=== PATIENT | female | born 2000 | race African-American/Black ===

== ENCOUNTER → 2018-03-23 | Outpatient (CLI) | payer SELFPAY | LOC: M ADAMS 11:20 | DX: R06.00 Dyspnea, unspecified (principal) | CPT/HCPCS: 71046 ==

== ENCOUNTER → 2018-03-23 | Outpatient (REF) | payer SELFPAY ==
[2018-03-23 13:54] LABS: BASO % 0.6 % (0.0-1.0); EOS # 0.1 10^3/uL (0.0-0.50); EOS % 2.1 % (0.0-3.0); HEMATOCRIT 40.5 % (36.0-47.0); HEMOGLOBIN 13.2 g/dl (12.0-15.5); IMMATURE GRANULOCYTE % 0.2 % (0-3.0); LYMPH # 2.2 10^3/uL (1.5-6.5); LYMPH % 40.9 % (24.0-44.0); MEAN CORPUSCULAR HEMOGLOBIN 29.6 pg (27.0-33.0); MEAN CORPUSCULAR HGB CONC 32.6 g/dl (32.0-36.5); MEAN CORPUSCULAR VOLUME 90.8 fl (80.0-96.0); MONO # 0.4 10^3/uL (0.0-0.8); NEUTROPHILS # 2.6 10^3/uL (1.8-7.7); NEUTROPHILS % 49.2 % (36.0-66.0); PLATELET COUNT, AUTOMATED 301 10^3/uL (150-450); RED BLOOD COUNT 4.46 10^6/uL (4.00-5.40); RED CELL DISTRIBUTION WIDTH 12.7 % (11.5-14.5); WHITE BLOOD COUNT 5.3 10^3/uL (4.0-10.0)
[2018-03-23 14:22] LABS: ALBUMIN 3.3 GM/DL (3.2-5.2); ALBUMIN/GLOBULIN RATIO 0.87 (1.00-1.93); ALKALINE PHOSPHATASE 140 U/L (45-117); ALT/SGPT 28 U/L (12-78); ANION GAP 5 MEQ/L (8-16); AST/SGOT 20 U/L (7-37); BILIRUBIN,TOTAL 0.3 MG/DL (0.2-1.0); BLOOD UREA NITROGEN 7 MG/DL (7-18); CALCIUM LEVEL 8.9 MG/DL (8.5-10.1); CARBON DIOXIDE LEVEL 29 MEQ/L (21-32); CHLORIDE LEVEL 105 MEQ/L (98-107); CREATININE FOR GFR 0.67 MG/DL (0.55-1.30); GLUCOSE, FASTING 74 MG/DL (70-100); POTASSIUM SERUM 4.6 MEQ/L (3.5-5.1); SODIUM LEVEL 139 MEQ/L (136-145); TOTAL PROTEIN 7.1 GM/DL (6.4-8.2)
== END ==
LOC: M SFHCADAM 11:15
DX: R06.00 Dyspnea, unspecified (principal); R00.2 Palpitations

== ENCOUNTER → 2018-03-23 | Outpatient (REF) | payer SELFPAY ==
[2018-03-23 15:34] LABS: CHLAMYDIA DNA AMPLIFICATION NEGATIVE (NEGATIVE); GC DNA AMPLIFICATION NEGATIVE (NEGATIVE)
== END ==
LOC: M SFHCADAM 13:14
DX: N89.8 Other specified noninflammatory disorders of vagina (principal)

== ENCOUNTER → 2018-03-29 | Outpatient (CLI) | payer SELFPAY | LOC: M CARPUL 11:25 | DX: R06.00 Dyspnea, unspecified (principal) | CPT/HCPCS: 93306 ==

== ENCOUNTER → 2018-06-07 | Outpatient (REF) | payer OTHER ==
[2018-06-07 14:44] LABS: HEMATOCRIT 39.1 % (36.0-47.0); HEMOGLOBIN 12.9 g/dl (12.0-15.5); MEAN CORPUSCULAR HEMOGLOBIN 28.8 pg (27.0-33.0); MEAN CORPUSCULAR VOLUME 87.3 fl (80.0-96.0); PLATELET COUNT, AUTOMATED 257 10^3/uL (150-450); RED BLOOD COUNT 4.48 10^6/uL (4.00-5.40); WHITE BLOOD COUNT 7.1 10^3/uL (4.0-10.0)
[2018-06-07 15:11] LABS: HCG, SERUM QUANTITATIVE 68051 MIU/ML
[2018-06-08 15:29] LABS: RUBELLA IgG QUALITATIVE IMMUNE (IMMUNE)
[2018-06-08 15:58] LABS: HEPATITIS C VIRUS ABY INDEX 0.1 INDEX (<0.8); HIV 1&2 SCREEN CENTAUR NEGATIVE (NEGATIVE)
== END ==
LOC: M LAB REF 14:35
PROVIDERS: ATTEND Obstetrics & Gynecology
DX: Z32.01 Encounter for pregnancy test, result positive (principal); O36.80X0 Pregnancy with inconclusive fetal viability, not applicable or unspecified

== ENCOUNTER 2018-09-11 17:35 | Outpatient (CLI) | payer OTHER, SELFPAY ==
[~2018-09-11] VITALS: Ht 167.6 cm; Wt 105.2 kg
[2018-09-11 18:00] VITALS: BP 116/73
[2018-09-11] MEDS ORDERED: MAPA500T2 PO (18:23)
[2018-09-11] MEDS ORDERED: PRENTAB9 PO (18:23)
[2018-09-11 18:37] VITALS: BP 118/72
[2018-09-11 19:22] VITALS: BP 126/73
[2018-09-11 20:24] VITALS: BP 120/69
== END 2018-09-11 20:45 | disposition home or self-care (01) ==
LOC: M LDO 17:35
PROVIDERS: ATTEND Obstetrics & Gynecology
DX: O99.89 Other specified diseases and conditions complicating pregnancy, childbirth and the puerperium (principal); Z3A.26 26 weeks gestation of pregnancy; R11.2 Nausea with vomiting, unspecified
CPT/HCPCS: G0378; G0463

== ENCOUNTER 2018-09-23 09:56 | Outpatient (CLI) | payer OTHER ==
[~2018-09-23] VITALS: Ht 167.6 cm; Wt 107.9 kg
[2018-09-23] VITALS (7 sets, daily range): BP systolic 111–131; BP diastolic 65–82
[~2018-09-23 09:56] MED LIST: MAPA500T2 PO; PRENTAB9 PO
[2018-09-23] MEDS ORDERED: LR 1,000 ML IV SCH (12:20)
--- NOTE | 2018-09-23 12:28 | IPNPDOC ---
Text Note Date of Service The patient was seen on 09/23/18. NOTE Outpatient 17yo ANJALI 12/14/18. Pt of [facility]. Presents @ 28w3d with complaints of lower abdominal and back cramping, intermittent. Denies LOF. Reports spotting. Hx significant for previous PTLB @ 34 wks, 9 months ago in [place]. No records available. FH Cat I NAD VSS No UC on monitor Abdomen soft, gravid, nontender. Reports discomfort into groin with activity, OOB and turning over. Clots noted in toilet. SSE + show, membranes visible SVE 50/-2, nonvertex presentation Consult Dr Hughes Mag sulfate prophylaxis, GBS prophylaxis, betamethasone injections and transfer to [place]. A-FIB/CHADSVASC A-FIB History Current/History of A-Fib/PAF?: No Current Oral Anticoagulant The: No VS,Fishbone, I+O VS, Fishbone, I+O Vital Signs Date Time Temp Pulse Resp B/P (MAP) Pulse Ox O2 Delivery O2 Flow Rate FiO2 09/23/18 10:17 97.7 118 18 111/68 (82) Dee Roy CNM September 23, 2018 12:28
[2018-09-23] MEDS ORDERED: MAG Sulf (L&D) 4 GM/100 ML 4 GM in APPROPRIATE DILUENT 1 EA IV ONE (12:30)
[2018-09-23] MEDS ORDERED: PENICILLIN G POTASSIUM IV 5 MU in D5W MINI-BAG PLUS 100 ML IV ONE (12:45)
[2018-09-23] MEDS ORDERED: MAG Sulf (OBGYN) 20GM/500ML 20,000 MG in APPROPRIATE DILUENT 1 EA IV SCH (13:00)
[2018-09-23] MEDS ORDERED: BETAMETHASONE SOLUSPAN 6MG/ML INJ 5ML (J0702) IM SCH (13:00)
--- NOTE | 2018-09-23 13:00 | IPNPDOC ---
Text Note Date of Service The patient was seen on 09/23/18. NOTE TC from Ceferino Stanley. Reviewed pt status Agrees to accept pt as long as she remains stable. A-FIB/CHADSVASC A-FIB History Current/History of A-Fib/PAF?: No Current Oral Anticoagulant The: No VS,Fishbone, I+O VS, Fishbone, I+O Vital Signs Date Time Temp Pulse Resp B/P (MAP) Pulse Ox O2 Delivery O2 Flow Rate FiO2 09/23/18 10:17 97.7 118 18 111/68 (82) Dee Roy CNM September 23, 2018 13:00
[2018-09-23 13:17] LABS: HEMATOCRIT 38.8 % (36.0-47.0); HEMOGLOBIN 12.6 g/dl (12.0-15.5); MEAN CORPUSCULAR HEMOGLOBIN 29.2 pg (27.0-33.0); MEAN CORPUSCULAR HGB CONC 32.5 g/dl (32.0-36.5); MEAN CORPUSCULAR VOLUME 89.8 fl (80.0-96.0); PLATELET COUNT, AUTOMATED 236 10^3/uL (150-450); RED BLOOD COUNT 4.32 10^6/uL (4.00-5.40); WHITE BLOOD COUNT 11.2 10^3/uL (4.0-10.0)
--- NOTE | 2018-09-23 13:39 | IPNPDOC ---
Text Note Date of Service The patient was seen on 09/23/18. NOTE Pt continues to deny feeling UC No UC on monitor Cat I tracing Footling breech by shelly NAVA 5-3, membranes intact Consult Dr Hughes. Continue towards transfer. Ambulance notified A-FIB/CHADSVASC A-FIB History Current/History of A-Fib/PAF?: No Current Oral Anticoagulant The: No VS,Fishbone, I+O VS, Fishbone, I+O Laboratory Tests 09/23/18 12:49 Red Blood Count 4.32, Mean Corpuscular Volume 89.8, Mean Corpuscular Hemoglobin 29.2, Mean Corpuscular Hemoglobin Concent 32.5, Red Cell Distribution Width 13.6 Vital Signs Date Time Temp Pulse Resp B/P (MAP) Pulse Ox O2 Delivery O2 Flow Rate FiO2 09/23/18 10:17 97.7 118 18 111/68 (82) Dee Roy CNM September 23, 2018 13:39
[2018-09-23 13:53] LABS: AMPHETAMINES URINE REFLEX NEGATIVE (NEGATIVE); BARBITURATES URINE REFLEX NEGATIVE (NEGATIVE); BENZODIAZEPINES URINE REFLEX NEGATIVE (NEGATIVE); CANNABINOIDS URINE REFLEX NEGATIVE (NEGATIVE); COCAINE METABOLITE URINE REFLE NEGATIVE (NEGATIVE); METHADONE URINE REFLEX NEGATIVE (NEGATIVE); OPIATES URINE REFLEX NEGATIVE (NEGATIVE); PHENCYCLIDINE URINE REFLEX NEGATIVE (NEGATIVE)
[2018-09-23 14:51] LABS: INR 0.92; PROTHROMBIN TIME 12.5 SECONDS (12.1-14.4)
[2018-09-23 14:52] LABS: PARTIAL THROMBOPLASTIN TIME 30.6 SECONDS (25.4-37.6)
--- NOTE | 2018-09-23 15:25 | REP ---
Obstetric sonography: History: Bleeding. Limited OB sonography: Findings: Scanning through the gravid uterus demonstrates a living single intrauterine gestation in a footling breech lie. motion is observed and heart rate is recorded at 147 beats per minute. A posterior fundal grade 1 placenta is seen without evidence of previa or abruption. Amniotic fluid is subjectively normal. MARJORIE is normal at 10.4 cm (9.3-22.9 cm). S/D ratio in the umbilical cord artery by Doppler is 2.10 (2.57-3.85). Transabdominal and translabial scanning are performed. No cervical tissue could be identified. The feet of the fetus and free-floating umbilical cord are seen at the vaginal cuff. Electronically Signed by Yovani Adhikari MD 09/23/2018 07:58 P
[2018-09-23] MEDS ORDERED: PENICILLIN G POTASSIUM IV 2.5 MU in APPROPRIATE DILUENT 1 EA IV SCH (17:00)
[2018-09-24] MEDS ORDERED: IBUP80TA PO (11:56)
[2018-09-24] MEDS ORDERED: COLA100C5 PO (11:58)
[2018-09-24] MEDS ORDERED: PERCOCET PO (11:59)
== END 2018-09-23 14:05 | disposition other institution (70) ==
LOC: M LDO 09:56
PROVIDERS: ATTEND Advanced Practice Midwife
DX: O26.893 Other specified pregnancy related conditions, third trimester (principal); R10.30 Lower abdominal pain, unspecified; O26.853 Spotting complicating pregnancy, third trimester; O32.1XX0 Maternal care for breech presentation, not applicable or unspecified; Z3A.28 28 weeks gestation of pregnancy
CPT/HCPCS: 59025; 96365; 96367; 96372; G0463

== ENCOUNTER 2018-09-23 15:06 | Inpatient (IN) | payer OTHER ==
[~2018-09-23] VITALS: Ht 167.6 cm; Wt 107.9 kg
[2018-09-23] VITALS (19 sets, daily range): BP systolic 112–148; BP diastolic 64–87
[2018-09-23] MEDS ORDERED: ACETAMINOPHEN TAB 650MG DOSE (2X325MG) PO PRN (15:15)
--- NOTE | 2018-09-23 15:39 | HPEPDOC ---
Obstetrical History & Physical General Date of Admission September 23, 2018 at 15:15 History of Present Illness Chief Complaint: Contractions, pre-term Information Provided By: Patient Age: 17 : 2 Term: 0 Pre-term: 1 Abortions: 0 Livin Care Care: Limited Care Dating Final EDC: Dec 14, 2018 Final EDC by: 1st trimester (US) EGA at Admission: 28 (+3) Antepartum Course Diagnos(e)s previous delivery threatened delivery Height (inches): 66 Pre- weight (lbs.): 217 Admission Weight (lbs.): 234 Past Medical History Past Obstetrical History : Past Obstetrical History: Primgravida (2018) Type of Delivery: Spontaneous Vaginal Del. Sex of : Male Complications: Yes (34wk delivery, preeclampsia) [employer] History: No pertinent history Past Medical History Medical History hx preeclampsia Surgical History: Hernia repair Family History Significant Family History: No pertinent family hx Social History Marital Status: Family situation: Spouse/partner home Psychosocial History: No pertinent psych hx * Smoker: former Smoker Alcohol: Denies Drugs: denies Allergies Coded Allergies: No Known Allergies (Unverified , 09/11/18) Medications Scheduled No.137/Iron/Folic Acd ( Vitamin Tablet) 1 Each Tablet, 1 TAB PO DAILY Physical Examination Physical Examination GENERAL: Alert and oriented times three. BREAST: . ABDOMEN: Gravid and non-tender to touch. FETUS: Is vertex (VTX) by sterile vaginal examination (SVE), fetus is footling breech by bedside sonogram. HEART RATE: Regular rate and rhythm. LUNGS: Clear to auscultation (CTA). EXTREMITIES: No edema. No clonus. Deep tendon reflexes (DTRs) + 2 SSE moderate bloody show. Membranes visible. SVE initially 4cm, -3. Later 6cm/80%/-3 No UC on monitor. Denies any pain or contractions Laboratory Data 24H LABS Laboratory Tests 2 09/23/18 15:17: Serology Scanned Report Hepatitis B Testing Pertinent Laboratoy Data Blood Type: O+ RBC Antibody Screen: Negative HIV: Negative Hepatitis B: Negative Hepatitis C: Negative Rapid Plasma Reagin: Nonreactive Rubella: Immune Chlamydia/Gonorrhea: Negative Group B Streptococcus: Unknown Quad Screen Test: Negative Glucose Tolerance Test: 95 Anatomy Ultrasound Ultrasound Date: Jul 20, 2018 Placenta Location: Posterior Normal Anatomy: Yes Placenta Previa: No Estimated Weight (grams): 256 Other Ultrasounds 06/10/18 dating 13w2d ANJALI 12/14/18 Steroid Therapy Steroid Therapy: Yes (initiated 09/23/18) Vaginal Examination Dilation: 6 cm Effacement: 80% Station: -3 Cervical Consistency: Soft Cervical Position: Middle Presentation: Breech presentation (footling) Assessment Heart Rate (FHR): 145 Variability: Moderate Accelerations: Positive Decelerations: None Tocometer Contractions: No Assessment/Plan Assessment Yudy is a 17-year-old (G)2 para (P)0-1-0-1 at 28+3 weeks by 13-week ultrasound. Admitted to Labor and Delivery (L&D) after attempted transfer for threatened delivery. Transfer declined due to cervical change. However, pt is not experiencing any contractions or pain. Sonogram demonstrates footling breech presentation. Membranes are intact. Plan Admit and orient per consult Dr Hughes Cane Loader and consent. Diet: Clear liquids. Group B Streptococcus (GBS) unknown, prophylaxis provided. Labs and intravenous (IV) per unit protocol.Mag sulfate per protocol for neuroprotection Betamethasone injections Q 24 hrs Bedrest Reassess as indicated by symptoms. Dee Roy CNM September 23, 2018 15:39
[2018-09-23] MEDS: PENICILLIN G POTASSIUM IV 2.5 MU in APPROPRIATE DILUENT 1 EA IV SCH ×2 (17:04→21:25)
[2018-09-23] MEDS ORDERED: LR 1,000 ML IV SCH (17:06)
[2018-09-23] MEDS ORDERED: MAGNESIUM SULFATE 4% INJ 20GM/500ML (40MG/ML) (J3475) As Ordered ONE (23:22)
[2018-09-23 23:26] LABS: HEMOGLOBIN 12.1 g/dl (12.0-15.5); MEAN CORPUSCULAR HEMOGLOBIN 29.7 pg (27.0-33.0); MEAN CORPUSCULAR HGB CONC 32.7 g/dl (32.0-36.5); MEAN CORPUSCULAR VOLUME 90.7 fl (80.0-96.0); PLATELET COUNT, AUTOMATED 241 10^3/uL (150-450); RED BLOOD COUNT 4.08 10^6/uL (4.00-5.40); WHITE BLOOD COUNT 17.1 10^3/uL (4.0-10.0)
[2018-09-23] MEDS: MAG Sulf (OBGYN) 20GM/500ML 20,000 MG in APPROPRIATE DILUENT 1 EA IV SCH (23:26)
[2018-09-24] VITALS (16 sets, daily range): BP systolic 105–150; BP diastolic 51–81
[2018-09-24] MEDS: PENICILLIN G POTASSIUM IV 2.5 MU in APPROPRIATE DILUENT 1 EA IV SCH ×3 (01:11→08:52)
--- NOTE | 2018-09-24 05:25 | NUR ---
Progress Note Called into room by RN to evaluate. Patient intermittently having rectovaginal pressure. She's unsure if she needs to have a bowel movement. She does not have an overwhelming urge to push. She is not feeling frequent, painful uterine contractions. Denies large gush of fluid or vaginal bleeding. No additional bloody show since this afternoon. VSS,normotensive, normal HR, afebrile Currently no bloody show. US,crawford: breech/transverse, pelvis still above pubic symphysis. EFM: Intermittent variable deceleration, baseline 130, mod variability, +accels. [place]: ctx pattern not detected Previously 6cm/80%/-3 with palpable bulging membranes A/P: 28+4 weeks. Advanced cervical dilation. No change in station, no evidence of uterine contractions/active labor. Reassuring status. -Explained to patient risk of repeated/frequent SVE (i.e. incidental ROM) -Symptoms, evaluation findings right now are not suggestive of progression, therefore I'm not currently inclined to recheck her cervix. -Pt verbalized understanding. Dana Hughes, DO
[2018-09-24] MEDS: MAG Sulf (OBGYN) 20GM/500ML 20,000 MG in APPROPRIATE DILUENT 1 EA IV SCH (08:52)
[2018-09-24] MEDS ORDERED: PRENATAL VITAMINS CHEWABLE TABLET PO SCH (09:00)
[2018-09-24] MEDS ORDERED: ceFAZolin 2 GM/D5W 50 ML IV BAG (J0690 PER 500MG) As Ordered ONE (09:57)
[2018-09-24] MEDS ORDERED: BICITRA 30ML SOLN UDC As Ordered ONE (09:57)
[2018-09-24] MEDS ORDERED: AZITHROMYCIN INJ 500MG VIAL (J0456) As Ordered ONE (09:58)
--- NOTE | 2018-09-24 10:01 | NUR ---
Progress Note Patient complaining of significantly more pressure and vaginal pain. Also complains of increased bright red vaginal bleeding. No significant LOF. VSS,normotensive, normal HR afebrile SVE: c/c/-2, bulging membranes US,crawford: breech EFM: Cat I [place]: difficult to trace; uterine irritability A/P: Active labor/second stage. Intact membranes. Breech presentation. -Preparations for OR being made Dana Hughes DO
[2018-09-24] MEDS ORDERED: MORPHINE PRES-FREE INJ 10 MG/10 ML VIAL (J2274) As Ordered ONE (10:02)
[2018-09-24] MEDS ORDERED: OXYTOCIN INJ 10 UNITS/ML VIAL (J2590) As Ordered ONE (10:02)
[2018-09-24] MEDS ORDERED: AZITHROMYCIN INJ 500 MG, VIAL MATE ADAPTER 1 EACH in D5W 250 ML IV ONE (10:15)
[2018-09-24] MEDS ORDERED: BICITRA 30ML SOLN UDC PO ONE (10:15)
[2018-09-24] MEDS ORDERED: ONDANSETRON 4MG/2ML VIAL (J2405) As Ordered ONE (10:19)
[2018-09-24] MEDS ORDERED: fentaNYL 100 MCG/2 ML INJECTION (J3010) As Ordered ONE (10:36)
[2018-09-24] MEDS ORDERED: PHENYLephrine HCL 500 MCG/5 ML (100MCG/ML) SYRINGE (J2370) As Ordered ONE (10:43)
[2018-09-24 10:51] LABS: CORD GAS ABE V -1.2; CORD GAS HCO3 V 22.2 MEQ/L; CORD GAS O2 SAT V 90.9 %; CORD GAS PCO2 V 33.2 mmHg; CORD GAS PH V 7.443 UNITS; CORD GAS PO2 V 44.3 mmHg; CORD GAS SBC V 23.3 MEQ/L; CORD GAS TCO2 V 23.2 MEQ/L
[2018-09-24] MEDS ORDERED: FAMOTIDINE INJ 20MG/2ML VIAL (S0028) As Ordered ONE (10:54)
[2018-09-24] MEDS ORDERED: OXYTOCIN 30 UNITS IN 0.9% NaCl 500ML IV BAG (J2590) As Ordered ONE (11:27)
[2018-09-24] MEDS ORDERED: OXYTOCIN DRIP 30 UNITS in APPROPRIATE DILUENT 1 EA IV SCH (11:28)
[2018-09-24] MEDS ORDERED: LR 1,000 ML IV SCH (11:28)
[2018-09-24] MEDS ORDERED: ONDANSETRON 4MG/2ML VIAL (J2405) IV PRN ×2 (11:30→12:00)
[2018-09-24] MEDS ORDERED: RHOGAM 300 MCG (1500 IU) INJ (J2790) IM SCH (11:30)
[2018-09-24] MEDS ORDERED: MEASLES,MUMPS,RUBELLA VACCINE INJ (MMR-II) (90707) SC SCH (11:30)
[2018-09-24] MEDS ORDERED: PROMETHAZINE 25 MG TAB PO PRN (11:30)
--- NOTE | 2018-09-24 11:48 | NUR ---
Operative Note Date of procedure: 09/24/2018 Procedure: Primary low-transverse section Anesthesia: Spinal with Duramorph Preoperative diagnosis: 28+3 weeks gestation Breech presentation labor Postoperative diagnosis: Same as preoperative Indication: 17-year-old G2, now P2. Presented yesterday with advanced cervical dilation. Betamethasone and magnesium sulfate were administered in anticipation of a delivery. Breech presentation noted on ultrasound. After she progressed to complete dilation this morning, the decision was made to proceed to the operating room for delivery. Primary surgeon: Scotty Hughes D.O., F. A.JuliocesarOBobbiG. Model Dresser: Rochelle Paz MD FACOG (essential role in surgical site exposure and assistance with delivery) Estimated blood loss: 500 ml IV fluids administered: 1600 ml crystalloid Drains: Lamar catheter. Urine output: 100 ml [place] data: Apgars 3, 7 and 8. Birthweight of 1130 g, 2 lbs. 8 oz male, named Garrett. Preoperative/prophylactic antibiotics: Ancef 2 g IV (given within 30 minutes prior to surgical start time). Intraoperative findings: Breech presentation. Incidental right paratubal cyst. Normal ovaries bilaterally. Normal uterus. Specimen(s): Placenta, right paratubal cyst Procedure: The patient was counseled and consented on the risks, benefits, indications and alternatives of the procedure. Informed consent was obtained and placed in the c araujo. She was taken to the operating room with an IV running. She was placed on the operating table. Spinal anesthesia was administered without any difficulty and found to be adequate. She was placed in the dorsal supine position with a leftward tilt. Sequential compression devices were placed on the lower extremities. A Lamar catheter was placed under sterile conditions. She was sterilely prepped and draped. A surgical time out was performed per protocol. Spinal anesthesia was again found to be adequate. Using the 10 blade a Pfannenstiel incision was performed. The 10 blade was used to dissect down to the level of the rectus sheath fascia. The rectus sheath fas carmenza was incised at the midline, and the fascial incision was extended with Hammonds scissors. Chaka clamps were used to grasp the superior and inferior aspect of the fascial incision and the rectus muscle bellies were dissected off sharply and bluntly. The midline was identified and the rectus muscle bellies were manually . The peritoneum was identified and clamped with hemostats and elevated. The peritoneum was then incised with Metzenbaum scissors. Entry into the intraperitoneal cavity was achieved. The peritoneal opening was extended with manual stretch . There was good visualization of both the bladder and the lower uterine segment. The Mobius retractor was placed. The vesicouterine peritoneum was dissected with Metzenbaum scissors and blunt dissection. A low transverse uterine incision was made with a new 10 blade. The hysterotomy was extended with manual stretch. The amniotic sac was protruding and then artificially ruptured. Clear amniotic fluid was noted. Breech maneuvers were performed and the baby delivered through the hysterotomy without any difficulty/dystocia. The cord was doubly clamped and cut and the baby was handed off to awaiting care. See data above. Cord blood was obtained.. Cord gases were obtained. The placenta was manually removed and noted to be fully intact. The uterus was kept in situ. The intrauterine cavity was cleared of all clot and debris with a laparotomy sponge. The hysterotomy was closed with 0 Vicryl in running, locked fashion. A second imbricating closure was performed over the initial layer closure using 0 Vicryl. The hysterotomy was noted to be hemostatic. The posterio r cul-de-sac was irrigated and cleared of all clot and debris. The paracolic gutters were cleared of all clot and debris with damp laparotomy sponges. The hysterotomy is reinspected and noted to be hemostatic. Sponge, needle and instrument counts were correct. The peritoneum was closed with 3-0 Vicryl in run erin fashion. The rectus muscle bellies were reapproximated with 3-0 Vicryl with a series of interrupted sutures. The rectus muscle bellies were noted to be hemostatic. The fascia was closed with 0 Vicryl in running fashion. Sponge, needle and instrument counts were again correct. The subcutaneous layer was irrigated. Small subcutaneous bleeders were cauterized with Bovie. The subcutaneous layer was reapproximated with 3-0 Vicryl in running fashion. The skin was closed with 3-0 Monocryl in subcuticular fashion. A bandage was placed over the closed incision. The final sponge, instrument and needle count was correct. She tolerated the entire procedure very well. She was transferred to the PACU in good and stable condition. Dr. Scotty Hughes D.O., F.A.C.O.G
[2018-09-24] MEDS ORDERED: IBUP80TA PO (11:56)
[2018-09-24] MEDS ORDERED: COLA100C5 PO (11:58)
[2018-09-24] MEDS ORDERED: PERCOCET PO (11:59)
[2018-09-24] MEDS ORDERED: fentaNYL 100 MCG/2 ML INJECTION (J3010) IV PRN (12:00)
[2018-09-24] MEDS ORDERED: BETAMETHASONE SOLUSPAN 6MG/ML INJ 5ML (J0702) IM SCH (12:45)
[2018-09-24] MEDS: KETOROLAC 30 MG/ML VIAL (J1885) IV SCH ×2 (13:37→20:06)
[2018-09-24 18:09] LABS: HEMATOCRIT 32.2 % (36.0-47.0); HEMOGLOBIN 10.4 g/dl (12.0-15.5); MEAN CORPUSCULAR HGB CONC 32.3 g/dl (32.0-36.5); MEAN CORPUSCULAR VOLUME 89.7 fl (80.0-96.0); PLATELET COUNT, AUTOMATED 226 10^3/uL (150-450); RED BLOOD COUNT 3.59 10^6/uL (4.00-5.40); WHITE BLOOD COUNT 15.6 10^3/uL (4.0-10.0)
[2018-09-24 18:34] LABS: CREATININE FOR GFR 0.72 MG/DL (0.55-1.30)
[2018-09-24] MEDS ORDERED: ENOXAPARIN 40 MG/0.4 ML SYRINGE (J1650) SC SCH (21:00)
[2018-09-24] MEDS: ENOXAPARIN 40 MG/0.4 ML SYRINGE (J1650) SC SCH (21:01)
[2018-09-24] MEDS: DOCUSATE SODIUM 100 MG CAP PO SCH (21:02)
[2018-09-25] VITALS (7 sets, daily range): BP systolic 94–130; BP diastolic 50–68
[2018-09-25] MEDS: KETOROLAC 30 MG/ML VIAL (J1885) IV SCH ×2 (03:24→08:45)
[2018-09-25 06:40] LABS: MEAN CORPUSCULAR HGB CONC 32.3 g/dl (32.0-36.5); MEAN CORPUSCULAR VOLUME 93.1 fl (80.0-96.0); PLATELET COUNT, AUTOMATED 181 10^3/uL (150-450); RED BLOOD COUNT 3.33 10^6/uL (4.00-5.40)
[2018-09-25] MEDS: PRENATAL VITAMINS CHEWABLE TABLET PO SCH (08:11)
[2018-09-25] MEDS: DOCUSATE SODIUM 100 MG CAP PO SCH ×2 (08:11→22:00)
--- NOTE | 2018-09-25 11:31 | NUR ---
POD#1 s/p PLTCS Pain well controlled, voiding spontaneously, tolerating a regular diet, ambulating without difficulty, lochia decreasing and minimal. Normotensive, normal HR, afebrile H: RRR no m/g/r L: CTA b/l no w/c/r/r Abd: soft,nt,nd Ext: no c/c/e Incision c/d/i with bandage on A/P: POD#1. Recovering appropriately. Hemodynamically stable, afebrile, good pain control. -Routine postoperative care/advancement -Anticipate d/c tomorrow. Dana Hughes DO
[2018-09-25] MEDS: PERCOCET 5MG/325MG TAB PO PRN ×3 (13:31→21:58)
[2018-09-25] MEDS: IBUPROFEN 800 MG TAB PO SCH (16:11)
[2018-09-25] MEDS: ENOXAPARIN 40 MG/0.4 ML SYRINGE (J1650) SC SCH (21:59)
[2018-09-26] MEDS: IBUPROFEN 800 MG TAB PO SCH ×2 (00:05→09:24)
[2018-09-26 02:06] VITALS: BP 107/68
[2018-09-26] MEDS: PERCOCET 5MG/325MG TAB PO PRN ×2 (02:17→06:36)
[2018-09-26 06:06] VITALS: BP 112/59
--- NOTE | 2018-09-26 08:53 | NUR ---
Discharge Summary Admission date: 09/23/18 Discharge date: 09/26/18 Admission diagnosis: Advanced cervical dilation at 28 weeks gestation, breech presentation Discharge diagnosis: labor, breech presentation, s/p PLTCS Discharge summary: 17yo [id number]. Admitted on 09/23/18 with advanced cervical dilation at 28+ weeks gestation. Unable to transfer to [place]. Pt was given betamethasone and magnesium sulfate. In the AM of 09/24/18, she was found to be completely dilated with footling breech presentation (membranes were intact). She was take n to the operating room for an urgent PLTCS with spinal anesthesia. The cesarea n delivery via low transverse incision was uncomplicated. Her postoperative course was uncomplicated as well. Upon delivery, arrangements were made for the baby's transfer to [facility]. The patient met all discharge criteria on POD#2, 09/26/18. Vitals were normal/stable. She was instructed to follow up in the office in 1-2 weeks. We reviewed fever, infectious, pain, and bleeding precautions. Discharge medications include: Percocet, Motrin, Colace. DO HINA CrespoOG
[2018-09-26] MEDS: DOCUSATE SODIUM 100 MG CAP PO SCH (09:24)
[2018-09-26] MEDS: PRENATAL VITAMINS CHEWABLE TABLET PO SCH (09:24)
== END 2018-09-26 10:26 | disposition home or self-care (01) | DRG 771 ==
LOC: M LDO 15:06 → M LDI 15:15 → M OBS 09-24 13:01
PROVIDERS: ADMIT Advanced Practice Midwife; ATTEND Advanced Practice Midwife
PROC: 10D00Z1 Extraction of Products of Conception, Low, Open Approach (ICD-10-PCS; principal; 2018-09-24 04:21)
DX: O32.1XX0 Maternal care for breech presentation, not applicable or unspecified (principal); O60.14X0 Preterm labor third trimester with preterm delivery third trimester, not applicable or unspecified; Z37.0 Single live birth; Z3A.28 28 weeks gestation of pregnancy

== ENCOUNTER → 2018-11-14 | Outpatient (CLI) | payer OTHER ==
[~2018-11-14] MED LIST changes: +COLA100C5 PO; +IBUP80TA PO; +PERCOCET PO
--- NOTE | 2018-11-14 14:55 | REP ---
LEFT BREAST ULTRASOUND: Left breast ultrasound performed in the region of a palpable lump in the left breast at about 3 o'clock. The patient is . In the region of the palpable lump at 3 o'clock there is an oval complex nodule containing solid and cystic components, measuring approximately 2.3 x 1.5 x 1.9 cm. It is wider than tall. There is internal venous flow with duplex Doppler evaluation. In the left axilla there is a normal size lymph node with a fatty hilum measuring 1.2 x 0.9 x 0.8 cm. IMPRESSION: ACR 3 probably benign. At the site of the palpable lump at 3 o'clock left breast is an oval complex solid and cystic nodule with a maximum diameter of 2.3 cm. In this lactating patient this most likely represents a lactating adenoma, or possibly fibroadenoma or lobular hyperplasia. Recommend followup ultrasound in 3 to 6 months. Electronically Signed by Morris Bedoya MD 11/14/2018 04:26 P
== END ==
LOC: M RAD 13:19
PROVIDERS: ATTEND Obstetrics & Gynecology
DX: N63.21 Unspecified lump in the left breast, upper outer quadrant (principal)

== ENCOUNTER → 2018-11-23 | Outpatient (REF) | payer OTHER ==
[2018-11-23 19:47] LABS: BASO % 0.5 % (0.0-1.0); EOS # 0.1 10^3/uL (0.0-0.50); EOS % 1.8 % (0.0-3.0); HEMATOCRIT 39.8 % (36.0-47.0); HEMOGLOBIN 12.5 g/dl (12.0-15.5); LYMPH # 2.4 10^3/uL (1.5-6.5); LYMPH % 30.8 % (24.0-44.0); MEAN CORPUSCULAR HEMOGLOBIN 28.2 pg (27.0-33.0); MEAN CORPUSCULAR HGB CONC 31.4 g/dl (32.0-36.5); MEAN CORPUSCULAR VOLUME 89.6 fl (80.0-96.0); MONO # 0.6 10^3/uL (0.0-0.8); MONO % 8.2 % (0.0-5.0); NEUTROPHILS # 4.5 10^3/uL (1.8-7.7); NEUTROPHILS % 58.3 % (36.0-66.0); PLATELET COUNT, AUTOMATED 331 10^3/uL (150-450); RED BLOOD COUNT 4.44 10^6/uL (4.00-5.40); WHITE BLOOD COUNT 7.8 10^3/uL (4.0-10.0)
== END ==
LOC: M SFHCADAM 14:14
PROVIDERS: ATTEND Family Medicine
DX: Z86.2 Personal history of diseases of the blood and blood-forming organs and certain disorders involving the immune mechanism (principal)
CPT/HCPCS: 85025; G0463

== ENCOUNTER → 2019-01-24 | Outpatient (REF) | payer OTHER ==
[2019-01-24 22:39] LABS: CHLAMYDIA DNA AMPLIFICATION NEGATIVE (NEGATIVE); GC DNA AMPLIFICATION NEGATIVE (NEGATIVE)
== END ==
LOC: M LAB REF 17:29
PROVIDERS: ATTEND Obstetrics & Gynecology
DX: N91.5 Oligomenorrhea, unspecified (principal); Z11.3 Encounter for screening for infections with a predominantly sexual mode of transmission

== ENCOUNTER → 2019-01-30 | Outpatient (CLI) | payer OTHER ==
--- NOTE | 2019-01-30 15:24 | REP ---
ULTRASOUND LEFT BREAST: Real-time sonographic evaluation of the left breast performed in the 3 -o'clock region. Comparison is made with a prior study of 11/14/2018. At that location, there is an oval predominantly solid mass with scattered tiny cystic areas. There is internal blood flow with Doppler evaluation. This measures 2.5 x 1.1 x 1.7 cm. There is no significant change compared to the prior exam. Again, in this lactating patient, most likely differential diagnostic possibilities include lactating adenoma, possible fibroadenoma or lobular hyperplasia. Continue followup is recommended. Recommend followup ultrasound in 3-6 months. Impression: BIRADS category three, probably benign. Stable predominantly solid nodule left breast. Recommend follow-up ultrasound in 3-6 months. Electronically Signed by Morris Bedoya MD 01/30/2019 04:25 P
--- NOTE | 2019-01-31 04:27 | REP ---
Clinical: Pelvic pain . Technique: Transabdominal pelvic ultrasound followed by transvaginal examination for better evaluation of the endometrium and adnexa with color Doppler evaluation of the ovaries. Findings: Bladder is unremarkable and measures 8.4 x 5.7 x 4.4 cm . Normal anteverted uterus measures 7.9 x 5.2 x 6.8 cm . The endometrial complex measures 11.0 mm thickness. No discrete uterine or endometrial abnormalities are appreciated. Bilateral ovaries are normal in vascularity without evidence for torsion. Right ovary measures 4.0 x 3.0 x 4.0 cm ; R I = 0.53. 2.2 x 2.2 x 2.8 cm complex right ovarian cyst noted. Left ovary measures 2.1 x 1.6 x 2.1 cm ; R I = 0.50 . Trace free fluid in the posterior cul-de-sac is nonspecific and likely physiologic. . Impression: 1. 2.8 cm complex cystic structure in the right ovary. Differential diagnosis includes but is not limited to complex physiologic cyst including hemorrhagic cyst as well as possible dermoid. Consider reevaluation in 4-6 weeks to evaluate for resolution. Electronically Signed by Master Meeks MD 01/31/2019 04:18 A
== END ==
LOC: M RAD 14:09
PROVIDERS: ATTEND Obstetrics & Gynecology
DX: D48.62 Neoplasm of uncertain behavior of left breast (principal); N83.201 Unspecified ovarian cyst, right side

== ENCOUNTER → 2019-03-31 | Outpatient (CLI) | payer OTHER ==
--- NOTE | 2019-03-31 15:14 | REP ---
REASON: Ovarian cyst. COMPARISON EXAMINATION: 01/30/2019 which showed a 2.8 cm sized complex cystic structure seen in the right ovary for which this examination was performed to followup. Transvesical and transvaginal imaging was obtained. The uterus is unchanged in size, shape, and echo pattern. The endometrial echo complex is within normal limits measuring 1.6 cm in thickness. Right ovary measures 4.5 x 3.2 x 2.7 cm. Within the right ovary there is a 1.7 x 1.7 x 1.9 cm sized complex septated anechoic structure. The right ovarian RI is 0.61. Left ovary measures 2.8 x 1.5 x 2.2 cm and is within normal limits with an RI 0.47. There is a small amount of fluid in the cul-de-sac. Urinary bladder measures 6 x 3 x 8 cm. IMPRESSION: The cystic structure seen previously in the right ovary has decreased in size. Electronically Signed by Alex Benjamin DO 03/31/2019 03:29 P
--- NOTE | 2019-03-31 17:29 | REP ---
Focused right breast sonography: History: Unspecified lump in the right breast. Right breast lump at 7 o'clock according to patient palpable since having a baby 6 months ago. Sonographic findings: The right breast is scanned sonographically at the 7 o'clock position in the area of palpable lump. Heterogeneous fibroglandular background echotexture is seen. No suspicious sonographic features. Impression: BIRADS category one negative findings. Clinical follow-up is advised. Electronically Signed by Yovani Adhikari MD 03/31/2019 06:45 P
== END ==
LOC: M RAD 13:06
PROVIDERS: ATTEND Obstetrics & Gynecology
DX: N83.209 Unspecified ovarian cyst, unspecified side (principal); N63.10 Unspecified lump in the right breast, unspecified quadrant